=== PATIENT | male | born 1985 | race Caucasian/White ===

== ENCOUNTER 2018-02-07 15:21 | Outpatient (CLI) | payer OTHER ==
--- NOTE | 2018-02-07 16:11 | CT ---
CT SINUSES: Date: 02/07/18 Multiple axial tomograms obtained through the sinuses with multiplanar reconstruction. HISTORY: Chronic sinusitis. Deviated septum. FINDINGS: Frontal air cells are well aerated and clear. The ethmoids are aerated and clear. Maxillary sinuses a re well aerated with no significant mucosal edema. The infundibula are mildly elongated but are paten t. Sphenoid air cells are clear. There is septal deviation to the right with small spur projecting to the right. IMPRESSION: No significant paranasal sinus mucosal disease. There is septal deviation to the right with small sep oumou spur projecting to the right. POS: [facility]
== END 2018-02-07 15:22 | disposition home or self-care (01) ==
LOC: BICCT 15:21
PROVIDERS: ATTEND Allergy & Immunology
DX: J32.9 Chronic sinusitis, unspecified (principal); J34.2 Deviated nasal septum; J34.89 Other specified disorders of nose and nasal sinuses

== ENCOUNTER 2018-11-05 09:45 | Outpatient (CLI) | payer OTHER ==
--- NOTE | 2018-11-05 10:05 | RAD ---
EXAM: 3 views of the left wrist HISTORY: Wrist pain COMPARISON: None FINDINGS: 3 views of the left wrist shows no evidence of acute fracture or dislocation. No soft tissu e swelling is seen. No degenerative changes are present. IMPRESSION: No evidence of acute osseous abnormality.
== END 2018-11-05 09:46 | disposition home or self-care (01) ==
LOC: BICRAD 09:45
PROVIDERS: ATTEND Physician Assistant
DX: S69.92XA Unspecified injury of left wrist, hand and finger(s), initial encounter (principal); M25.532 Pain in left wrist

== ENCOUNTER 2021-12-15 07:48 | Outpatient (CLI) | payer OTHER | END 2021-12-15 07:49 | disposition home or self-care (01) | LOC: SCSMRI 07:48 | PROVIDERS: ATTEND Family Medicine | DX: R55 Syncope and collapse (principal) | CPT/HCPCS: 70553 ==